=== PATIENT | female | born 1975 | race Caucasian/White ===

== ENCOUNTER 2023-06-14 16:27 | Emergency (ER) | payer MEDICAID ==
[~2023-06-14] VITALS: Ht 154.9 cm; Wt 85.7 kg
[2023-06-14 17:07] VITALS: BP 106/67; PULSE 61; RESP 18; TEMP 98.2; O2SAT 100
[2023-06-14 17:36] LABS: BASOPHILS % (AUTO) 0.8 % (0.0-2.0); EOSINOPHILS # (AUTO) 0.4 K/uL (0-0.4); EOSINOPHILS % (AUTO) 7.3 % (0.0-4.0); HEMATOCRIT 25.2 % (36-48); HEMOGLOBIN 7.6 g/dL (12.0-16.0); LYMPHOCYTES # (AUTO) 1.7 K/uL (2.5-16.5); LYMPHOCYTES % (AUTO) 30.2 % (20.5-51.1); MEAN CORPUSCULAR HEMOGLOBIN 19 pg (27-31); MEAN CORPUSCULAR HGB CONC 30 g/dL (33-37); MEAN CORPUSCULAR VOLUME 63.8 fL (80-94); MONOCYTES # (AUTO) 0.3 K/uL (0.8-1.0); MONOCYTES % (AUTO) 5.6 % (1.7-9.3); NEUTROPHILS # (AUTO) 3.2 K/uL (1.8-7.7); NEUTROPHILS % (AUTO) 56.1 % (42.2-75.2); PLATELET COUNT (AUTO) 352 K/uL (140-450); RED BLOOD CELL COUNT(AUTO) 3.94 MIL/uL (4.20-5.40); RED CELL DISTRIBUTION WIDTH 18.8 % (11.6-13.7); WHITE BLOOD COUNT (AUTO) 5.7 K/uL (4.8-10.8)
[2023-06-14 17:49] LABS: APPEARANCE,URINE CLEAR (CLEAR); BILIRUBIN,URINE NEGATIVE (NEGATIVE); BLOOD, URINE TRACE-I (NEGATIVE); COLOR,URINE YELLOW (YELLOW); LEUKOCYTE ESTERASE ,URINE NEGATIVE (NEGATIVE); NITRITE, URINE POSITIVE (NEGATIVE); PROTEIN,URINE NEGATIVE (NEGATIVE); UGLUCOSE NEGATIVE (NEGATIVE); UROBILINOGEN,URINE 0.2 EU/dL (0.2 - 1)
[2023-06-14 18:00] LABS: ALBUMIN 3.7 g/dL (3.4-5.0); ANION GAP 10.6 (8-16); CALCIUM 8.4 mg/dL (8.5-10.1); CARBON DIOXIDE 27.1 mmol/L (21-32); CREATININE 0.7 mg/dL (0.6-1.3); POTASSIUM 3.7 mmol/L (3.5-5.1); TOTAL BILIRUBIN 0.3 mg/dL (0.0-1.0); TOTAL PROTEIN, SERUM 8.7 g/dL (6.4-8.2)
[2023-06-14 18:01] VITALS: TEMP 98.2
[2023-06-14 18:05] LABS: SQUAMOUS EPITHELIAL CELL,UR 0-3 (FEW) /LPF (0-3 (FEW))
[2023-06-14 18:06] LABS: BACTERIA,URINE 10-30 (MOD) /HPF (None Seen)
[2023-06-14] MEDS ORDERED: ALUMINUM HYD/MAG/SIMETHICONE 30 ML UDC ONE (18:12)
[2023-06-14] MEDS ORDERED: DICYCLOMINE HCL LIQUID 10 MG/5 ML UDC ONE (18:13)
[2023-06-14] MEDS: DICYCLOMINE HCL LIQUID 20 MG, ALUMINUM HYD/MAG/SIMETHICONE 30 ML, LIDOCAINE VISCOUS 2% ... PO ONE (18:31)
[2023-06-14] MEDS: FAMOTIDINE 20 MG TAB PO ONE (18:31)
[2023-06-14] MEDS: ONDANSETRON 4 MG ODT PO ONE (18:31)
[2023-06-14] MEDS: KETOROLAC 30 MG/ML VIAL IM ONE (18:31)
[2023-06-14 19:24] VITALS: BP 99/57; PULSE 79; RESP 16; O2SAT 100
[2023-06-14] MEDS: cephALEXin 500 MG CAP PO ONE (19:38)
[2023-06-14] MEDS ORDERED: FAMO-90 PO (20:24)
[2023-06-14] MEDS ORDERED: OMEP20EC11 PO (20:24)
[2023-06-14] MEDS ORDERED: SUCR1TAB35 PO (20:24)
[2023-06-14] MEDS ORDERED: ACET-8905 PO (20:25)
[2023-06-17] MEDS ORDERED: CEPH-588 PO (06:39)
== END 2023-06-14 20:36 | disposition home or self-care (01) ==
LOC: MED 16:27
DX: N83.202 Unspecified ovarian cyst, left side (principal); K29.70 Gastritis, unspecified, without bleeding; K46.9 Unspecified abdominal hernia without obstruction or gangrene; G43.909 Migraine, unspecified, not intractable, without status migrainosus; Z79.899 Other long term (current) drug therapy; Z91.040 Latex allergy status; Z90.49 Acquired absence of other specified parts of digestive tract; Z90.710 Acquired absence of both cervix and uterus
CPT/HCPCS: 36415; 74176; 80053; 81001; 81025; 83690; 85025; 87086; 96372; 99285; J1885; Q0162

== ENCOUNTER 2023-09-01 18:27 | Emergency (ER) | payer MEDICAID ==
[~2023-09-01] VITALS: Ht 157.5 cm; Wt 88.6 kg
[~2023-09-01 18:27] MED LIST: ACET-8905 PO; CEPH-588 PO; FAMO-90 PO; OMEP20EC11 PO; SUCR-3 PO
[2023-09-01 19:04] VITALS: BP 120/68; PULSE 75; RESP 18; TEMP 98.1; O2SAT 100
[2023-09-01] MEDS: CYCLOBENZAPRINE 10 MG TAB PO ONE (21:08)
[2023-09-01] MEDS: KETOROLAC 30 MG/ML VIAL IM ONE (21:10)
[2023-09-01] MEDS ORDERED: CYCL-711 PO (21:41)
[2023-09-01] MEDS ORDERED: IBUP-2213 PO (21:41)
== END 2023-09-01 21:52 | disposition home or self-care (01) ==
LOC: MED 18:27
DX: S39.012A Strain of muscle, fascia and tendon of lower back, initial encounter (principal); S63.501A Unspecified sprain of right wrist, initial encounter; S60.221A Contusion of right hand, initial encounter; M62.830 Muscle spasm of back; Z79.1 Long term (current) use of non-steroidal anti-inflammatories (NSAID); Z79.899 Other long term (current) drug therapy; Z91.040 Latex allergy status; W01.0XXA Fall on same level from slipping, tripping and stumbling without subsequent striking against object, initial encounter; Y93.E1 Activity, personal bathing and showering; Y92.89 Other specified places as the place of occurrence of the external cause; Y99.8 Other external cause status
CPT/HCPCS: 29125; 73090; 73110; 73130; 81025; 96372; 99284; J1885; 29105